=== PATIENT | female | born 1960 | race Caucasian/White ===

== ENCOUNTER 2016-05-01 13:16 | Emergency (ER) | payer OTHER ==
[~2016-05-01] VITALS: Wt 72.5 kg
[2016-05-01] MEDS ORDERED: AZIT250T94 PO (14:48)
[2016-05-01] MEDS ORDERED: BENZ100C70 PO (14:48)
--- NOTE | 2016-05-01 16:28 | ERD ---
ER Documentation Chief Complaint Date/Time DATE: 05/01/16 TIME: 16:25 Chief Complaint COUGH AND CONGESTION FOR THE PAST 4 DAYS. INTERMITTENT FEVERS. HEADACHE HPI Patient is a 56-year-old female with no past medical history who presents to the ED with productive cough, sore throat and body aches for 4 days. She states that her daughter has had similar symptoms at home. She has taken ibuprofen, Tylenol and TheraFlu for her symptoms with minimal relief. Denies shortness of breath or difficulty breathing. Denies leg pain or swelling. Denies headache, dizziness, neck pain or stiffness. Denies chest pain. Denies recent surgeries, recent travel. No other complaints. ROS All systems reviewed and are negative except as per history of present illness. Medications Home Meds Active Scripts Benzonatate* (Tessalon Perle*) 100 Mg Capsule, 100 MG PO Q8H Y for COUGH for 10 Days, CAP Prov:NOEMY CALDWELL PA-C 05/01/16 Azithromycin* (Zithromax*) 250 Mg Tablet, 250 MG PO .ZPACK DIRECTED, #6 TAB TAKE 500 MG (2 TABS) THE FIRST DAY THEN 250 MG (1 TAB) DAYS 2-5 Prov:NOEMY CALDWELL PA-C 05/01/16 PMhx/Soc History of Surgery: No Anesthesia Reaction: No Hx Neurological Disorder: No Hx Respiratory Disorders: No Hx Cardiac Disorders: No Hx Psychiatric Problems: No Hx Miscellaneous Medical Probl: No Hx Alcohol Use: No Hx Substance Use: No Physical Exam Vitals Vital Signs Date Time Temp Pulse Resp B/P Pulse Ox O2 Delivery O2 Flow Rate FiO2 05/01/16 13:26 99.0 96 22 119/67 98 Physical Exam GENERAL: Well-developed, well-nourished female. Appears in no acute distress. HEAD: Normocephalic, atraumatic. EYES: Pupils are equally reactive bilaterally. EOMs grossly intact. No conjunctival erythema. ENT: Moist mucous membranes. No uvula deviation. No kissing tonsils. No exudates. NECK: Supple. No lymphadenopathy or thyromegaly. No meningismus. negative kernig. negative brudinski. LUNG: Clear to auscultation bilaterally. No rhonchi, wheezing, rales or coarse breath sounds. HEART: Regular rate and rhythm. No murmurs, rubs or gallops. NEUROLOGIC: Alert and oriented. Moving all four extremities. 5/5 strength in all extremities. Normal speech. Steady gait. SKIN: Normal color. Warm and dry. No rashes or lesions. Capillary refill < 2 seconds Procedures/MDM ER COURSE: I kept the patient and/or family informed of laboratory and diagnostic imaging results throughout the emergency room course. MEDICAL DECISION MAKING: This is a 56-year-old female who presents with sore throat, cough 4 days. Vital signs were reviewed. Patient is afebrile. Patient is not hypoxic. Patient is not toxic or ill-appearing. Temperature 99, pulse 96 with an O2 sat of 98. Patient has URI, bacterial versus viral etiology. Low suspicion for pneumonia, PE, pneumothorax, ACS, epiglottitis, obstruction, TB, pertussis, meningitis, sepsis. I have low suspicion for PE as patient has not had recent surgery, denies hemoptysis does not have unilateral leg pain or swelling, does not have chest pain. DISCHARGE: At this time, patient is stable for discharge and outpatient management with no new complaints during the ER course. Patient was sent home with azithromycin, Tessalon Perles to continue ibuprofen and Motrin at home.. Patient will be discharged home with instructions to recheck for new or worsening symptoms such as fever, nausea, weakness, LOC and to follow up with primary care in the next 1 -2 days. Patient was advised to return to the ER for any new or worsening symptoms. Plan was discussed and patient and/or family understands and agrees. Home instructions were given. Departure Diagnosis: Primary Impression: URI, acute Condition: Stable Patient Instructions: Uri, Viral, No Abx (Adult) Additional Instructions: Llame al doctor MAANA y cookie [place] TAVARES PARA DENTRO DE 1-2 GRIFFITHS.Dgale a la secretaria que nosotros le instruimos hacer esta tavares.Avise o llame si lópez condicin se empeora antes de la tavares. Regresa aqui si peor o no mejor. NOEMY CALDWELL PA-C May 01, 2016 16:28
== END 2016-05-01 14:49 | disposition home or self-care (01) ==
LOC: E/R 13:16
DX: J06.9 Acute upper respiratory infection, unspecified (principal)
CPT/HCPCS: 99284